=== PATIENT | male | born 1950 | race Caucasian/White ===

== ENCOUNTER 2023-09-04 14:46 | Inpatient (IN) | payer MEDICARE, OTHER ==
[~2023-09-04] VITALS: Ht 172.7 cm; Wt 89.4 kg
[2023-09-04] MEDS ORDERED: Eliquis (14:52)
[2023-09-04] MEDS ORDERED: Lasix (15:06)
[2023-09-04] MEDS ORDERED: Coreg (15:06)
[2023-09-04] MEDS ORDERED: Potassium (15:06)
[2023-09-04] MEDS ORDERED: Amlodipine (15:06)
[2023-09-04 15:16] LABS: BASOPHILS # (AUTO) 0.1 K/UL (0.0-0.2); BASOPHILS % (AUTO) 1.3 % (0.0-2.0); HEMATOCRIT 42.3 % (36.7-47.1); HEMOGLOBIN 14.4 g/dL (12.5-16.3); LYMPHOCYTES # (AUTO) 1.2 K/uL (0.8-4.8); LYMPHOCYTES % (AUTO) 11.2 % (20.5-51.5); MEAN CORPUSCULAR HEMOGLOBIN 30.9 uug (23.8-33.4); MEAN CORPUSCULAR HGB CONC 34 g/dL (32.5-36.3); MONOCYTES # (AUTO) 0.6 K/uL (0.1-1.30); NEUTROPHILS # (AUTO) 8.6 K/uL (1.8-8.9); NEUTROPHILS % (AUTO) 81.5 % (38.5-71.5); PLATELET COUNT (AUTO) 171 K/uL (152-348); RED BLOOD CELL COUNT(AUTO) 4.65 MIL/uL (4.06-5.63); WHITE BLOOD COUNT (AUTO) 10.6 K/uL (3.6-10.2)
[2023-09-04 15:33] LABS: DIFFERENTIAL COMMENT 1
[2023-09-04 15:36] LABS: ALANINE AMINOTRANSFERASE 10 U/L (16-63); ALBUMIN 2.9 g/dL (3.4-5.0); ALKALINE PHOSPHATASE 77 U/L (50-136); ASPARTATE AMINOTRANSFERASE 16 U/L (15-37); BILIRUBIN,DIRECT 0.7 mg/dL (0.0-0.2); CALCIUM 8.8 mg/dL (8.5-10.1); CARBON DIOXIDE 26 mmol/L (21-32); CHLORIDE 98 mmol/L (98-107); CREATININE 1.4 mg/dL (0.6-1.3); GLUCOSE 139 mg/dL (74-106); NT-PRO BNP 8184 pg/mL (0-125); TOTAL PROTEIN, SERUM 6.5 g/dL (6.4-8.2); UREA NITROGEN, BLOOD 15 mg/dL (7-18)
[2023-09-04 15:40] LABS: SODIUM SERUM 134 mmol/L (136-145)
[2023-09-04 15:44] LABS: POTASSIUM 2.6 mmol/L (3.5-5.1)
[2023-09-04] MEDS ORDERED: IV NORMAL SALINE 500 ML BAG IV ONE (15:45)
[2023-09-04] MEDS ORDERED: POTASSIUM CHLORIDE 40 MEQ in IV NS 1000 ML 1,000 ML IV ONE (16:00)
[2023-09-04] MEDS ORDERED: POTASSIUM CHLORIDE 20 MEQ TAB.PRT.SR PO ONE (16:00)
[2023-09-04] MEDS ORDERED: POTASSIUM CHLORIDE 20 MEQ TAB.PRT.SR ONE (16:17)
[2023-09-04] MEDS ORDERED: ASPIRIN 81 MG TAB.CHEW ONE (17:55)
[2023-09-04] MEDS ORDERED: CEFTRIAXONE /D5W 50ML IVPB **ER PYXIS IV ONE ×2 (17:55→21:15)
[2023-09-04] MEDS: CEFTRIAXONE 1 G in IV DEXTROSE 5% 50 ML IV SCH (18:15)
[2023-09-04] MEDS ORDERED: ONDANSETRON 4 MG/2 ML VIAL IV ONE (18:30)
[2023-09-04] MEDS ORDERED: ONDANSETRON 4 MG/2 ML VIAL ONE (18:43)
[2023-09-04] MEDS ORDERED: PRED2.5T PO (18:58)
[2023-09-04] MEDS ORDERED: APIX5TAB4 PO (18:58)
[2023-09-04] MEDS ORDERED: ABIR250T PO (18:58)
[2023-09-04] MEDS ORDERED: TAMS-3 PO (18:58)
[2023-09-04] MEDS ORDERED: POTA-88 PO (18:58)
[2023-09-04] MEDS ORDERED: FURO20TA4 PO (18:58)
[2023-09-04] MEDS ORDERED: RIVA20TA PO (18:58)
[2023-09-04] MEDS ORDERED: CARV6.252 PO (18:58)
[2023-09-04] MEDS ORDERED: AMLO-212 PO (18:58)
[2023-09-04] MEDS ORDERED: NITROGLYCERIN OINT 1 GM PACKET TP ONE ×2 (22:19→22:30)
[2023-09-04] MEDS ORDERED: FUROSEMIDE 40 MG/4 ML VIAL ONE (22:19)
[2023-09-04] MEDS ORDERED: hydrALAZINE HCL 20 MG/1 ML VIAL ONE (22:20)
[2023-09-04] MEDS ORDERED: hydrALAZINE HCL 20 MG/1 ML VIAL IV ONE (22:30)
[2023-09-04] MEDS ORDERED: FUROSEMIDE 40 MG/4 ML VIAL IV ONE (22:30)
[2023-09-04 23:41] VITALS: BP 173/96; TEMP 100; O2SAT 95
[2023-09-05 00:53] LABS: *BILIRUBIN,URIN NEGATIVE (NEGATIVE); *CLARITY,URINE CLEAR (CLEAR); *COLOR,URINE YELLOW (YELLOW); *KETONES,URINE NEGATIVE (NEGATIVE); *PROTEIN,URINE NEGATIVE (NEGATIVE); *UROBILINOGEN,URINE 0.2 E.U./dl (NORMAL); LEUKOCYTE ESTERASE ,URINE NEGATIVE (NEGATIVE); NITRITE, URINE NEGATIVE (NEGATIVE); UGLUCOSE NEGATIVE (NEGATIVE)
[2023-09-05 01:03] LABS: *BLOOD, URINE NEGATIVE (NEGATIVE)
[2023-09-05 04:55] VITALS: BP 116/81; TEMP 98.9; O2SAT 94
[2023-09-05 07:07] LABS: BASOPHILS # (AUTO) 0.1 K/UL (0.0-0.2); BASOPHILS % (AUTO) 0.8 % (0.0-2.0); HEMATOCRIT 38.2 % (36.7-47.1); HEMOGLOBIN 13.1 g/dL (12.5-16.3); LYMPHOCYTES # (AUTO) 0.8 K/uL (0.8-4.8); LYMPHOCYTES % (AUTO) 8.5 % (20.5-51.5); MEAN CORPUSCULAR HEMOGLOBIN 31.4 uug (23.8-33.4); MEAN CORPUSCULAR HGB CONC 34 g/dL (32.5-36.3); MEAN CORPUSCULAR VOLUME 91.9 fL (73.0-96.2); MONOCYTES # (AUTO) 0.5 K/uL (0.1-1.30); MONOCYTES % (AUTO) 5.1 % (0.0-11.0); NEUTROPHILS # (AUTO) 8.2 K/uL (1.8-8.9); NEUTROPHILS % (AUTO) 85.6 % (38.5-71.5); PLATELET COUNT (AUTO) 138 K/uL (152-348); RED BLOOD CELL COUNT(AUTO) 4.16 MIL/uL (4.06-5.63); RED CELL DISTRIBUTION WIDTH 13.2 % (12.1-16.2); WHITE BLOOD COUNT (AUTO) 9.5 K/uL (3.6-10.2)
[2023-09-05 07:16] LABS: DIFFERENTIAL COMMENT 1
[2023-09-05 07:28] LABS: CALCIUM 7.9 mg/dL (8.5-10.1); CARBON DIOXIDE 25 mmol/L (21-32); CHLORIDE 102 mmol/L (98-107); CREATININE 1.3 mg/dL (0.6-1.3); GLUCOSE 106 mg/dL (74-106); SODIUM SERUM 138 mmol/L (136-145); UREA NITROGEN, BLOOD 15 mg/dL (7-18)
[2023-09-05 08:00] VITALS: BP 117/76; TEMP 98.5; O2SAT 96
[2023-09-05 08:04] LABS: POTASSIUM 2.6 mmol/L (3.5-5.1)
[2023-09-05] MEDS ORDERED: ASPIRIN EC 81 MG TABLET.DR PO SCH ×2 (09:00)
[2023-09-05 11:41] VITALS: BP 111/71; TEMP 98.8; TEMP 99.7; O2SAT 93
[2023-09-05] MEDS ORDERED: POTASSIUM CHLORIDE 20 MEQ TAB.PRT.SR PO ONE ×3 (12:30→21:00)
[2023-09-05] MEDS ORDERED: Medication Not On Formulary EA (Apixaban (Eliquis) 5 MG) PO SCH (13:15)
[2023-09-05] MEDS: POTASSIUM CHLORIDE 20 MEQ TAB.PRT.SR PO SCH (14:00)
[2023-09-05] MEDS ORDERED: IOHEXOL 350 100 ML INFUS..BTL ONE (14:26)
[2023-09-05] MEDS ORDERED: SWABABLE VALVE TRANSFER SET EA MC ONE (14:26)
[2023-09-05] MEDS ORDERED: IV NORMAL SALINE 250 ML IV ONE (14:26)
[2023-09-05 15:59] VITALS: BP 158/91; TEMP 99; O2SAT 91
[2023-09-05] MEDS: AZITHROMYCIN IV 500 MG in IV DEXTROSE 5% 250 ML IV SCH (16:18)
[2023-09-05] MEDS: APIXABAN 5 MG TABLET PO SCH (17:34)
[2023-09-05] MEDS: CARVEDILOL 6.25 MG TABLET PO SCH (17:38)
[2023-09-05] MEDS: CEFTRIAXONE 1 G in IV DEXTROSE 5% 50 ML IV SCH (17:39)
[2023-09-05 20:21] VITALS: BP 113/50; TEMP 99.4; O2SAT 91
[2023-09-05] MEDS: TAMSULOSIN HCL 0.4 MG CAP.SR.24H PO SCH (20:26)
[2023-09-06] VITALS (10 sets, daily range): BP systolic 100–130; BP diastolic 58–85; TEMP 97.6–101.9; O2SAT 92–99
[2023-09-06] MEDS: ACETAMINOPHEN 325 MG TABLET PO PRN (00:08)
[2023-09-06] MEDS: ALBUTEROL SULFATE 2.5 MG/ 0.5 ML NEBU NEB PRN ×2 (04:31→12:46)
[2023-09-06] MEDS: PANTOPRAZOLE SODIUM 40 MG TABLET.DR PO SCH (06:15)
[2023-09-06 07:36] LABS: BASOPHILS % (AUTO) 0.5 % (0.0-2.0); HEMATOCRIT 37.7 % (36.7-47.1); HEMOGLOBIN 12.7 g/dL (12.5-16.3); LYMPHOCYTES # (AUTO) 0.6 K/uL (0.8-4.8); LYMPHOCYTES % (AUTO) 7.8 % (20.5-51.5); MEAN CORPUSCULAR HEMOGLOBIN 31.1 uug (23.8-33.4); MEAN CORPUSCULAR HGB CONC 34 g/dL (32.5-36.3); MEAN CORPUSCULAR VOLUME 91.9 fL (73.0-96.2); MONOCYTES # (AUTO) 0.3 K/uL (0.1-1.30); MONOCYTES % (AUTO) 4.3 % (0.0-11.0); NEUTROPHILS # (AUTO) 6.6 K/uL (1.8-8.9); NEUTROPHILS % (AUTO) 87.4 % (38.5-71.5); PLATELET COUNT (AUTO) 136 K/uL (152-348); RED CELL DISTRIBUTION WIDTH 13.6 % (12.1-16.2); WHITE BLOOD COUNT (AUTO) 7.5 K/uL (3.6-10.2)
[2023-09-06 07:41] LABS: ALANINE AMINOTRANSFERASE 12 U/L (16-63); ALBUMIN 2.3 g/dL (3.4-5.0); ALKALINE PHOSPHATASE 55 U/L (50-136); ASPARTATE AMINOTRANSFERASE 38 U/L (15-37); BILIRUBIN,TOTAL 0.9 mg/dL (0.2-1.0); CALCIUM 8.2 mg/dL (8.5-10.1); CARBON DIOXIDE 29 mmol/L (21-32); CHLORIDE 105 mmol/L (98-107); CREATININE 1.4 mg/dL (0.6-1.3); GLUCOSE 116 mg/dL (74-106); MAGNESIUM 2.1 mg/dL (1.8-2.4); PHOSPHOROUS 2.2 mg/dL (2.5-4.9); POTASSIUM 3.9 mmol/L (3.5-5.1); SODIUM SERUM 140 mmol/L (136-145); TOTAL PROTEIN, SERUM 5.7 g/dL (6.4-8.2); UREA NITROGEN, BLOOD 18 mg/dL (7-18)
[2023-09-06] MEDS: POTASSIUM CHLORIDE 20 MEQ TAB.PRT.SR PO SCH (08:58)
[2023-09-06] MEDS: TAMSULOSIN HCL 0.4 MG CAP.SR.24H PO SCH ×2 (08:58→21:24)
[2023-09-06] MEDS: predniSONE 5 MG TABLET PO SCH (08:59)
[2023-09-06] MEDS ORDERED: AMLODIPINE 5 MG TABLET PO SCH (09:00)
[2023-09-06] MEDS ORDERED: Medication Not On Formulary EA (Potassium Chloride 1 TAB) PO SCH (09:00)
[2023-09-06] MEDS ORDERED: predniSONE 2.5 MG TABLET PO SCH (09:00)
[2023-09-06] MEDS: APIXABAN 5 MG TABLET PO SCH ×2 (09:00→16:53)
[2023-09-06] MEDS ORDERED: NEUTRA PHOS PACKET PO ONE (10:00)
[2023-09-06] MEDS: CARVEDILOL 6.25 MG TABLET PO SCH (16:53)
[2023-09-06] MEDS: AZITHROMYCIN IV 500 MG in IV DEXTROSE 5% 250 ML IV SCH (16:53)
[2023-09-06] MEDS: CEFTRIAXONE 1 G in IV DEXTROSE 5% 50 ML IV SCH (18:02)
[2023-09-07] VITALS (19 sets, daily range): BP systolic 114–130; BP diastolic 62–82; TEMP 98.4–99; O2SAT 90–99
[2023-09-07] MEDS: ALBUTEROL SULFATE 2.5 MG/ 0.5 ML NEBU NEB PRN ×2 (04:31→12:55)
[2023-09-07] MEDS: PANTOPRAZOLE SODIUM 40 MG TABLET.DR PO SCH (06:15)
[2023-09-07 07:20] LABS: BASOPHILS % (AUTO) 0.4 % (0.0-2.0); EOSINOPHILS % (AUTO) 0.1 % (0.0-7.0); HEMATOCRIT 38.5 % (36.7-47.1); LYMPHOCYTES # (AUTO) 0.7 K/uL (0.8-4.8); LYMPHOCYTES % (AUTO) 9.5 % (20.5-51.5); MEAN CORPUSCULAR HEMOGLOBIN 31.1 uug (23.8-33.4); MEAN CORPUSCULAR HGB CONC 34 g/dL (32.5-36.3); MEAN CORPUSCULAR VOLUME 92.3 fL (73.0-96.2); MONOCYTES # (AUTO) 0.4 K/uL (0.1-1.30); MONOCYTES % (AUTO) 5.3 % (0.0-11.0); NEUTROPHILS # (AUTO) 6.1 K/uL (1.8-8.9); NEUTROPHILS % (AUTO) 84.7 % (38.5-71.5); PLATELET COUNT (AUTO) 134 K/uL (152-348); RED BLOOD CELL COUNT(AUTO) 4.17 MIL/uL (4.06-5.63); RED CELL DISTRIBUTION WIDTH 13.5 % (12.1-16.2); WHITE BLOOD COUNT (AUTO) 7.2 K/uL (3.6-10.2)
[2023-09-07 07:29] LABS: DIFFERENTIAL COMMENT 1
[2023-09-07 07:38] LABS: CALCIUM 8.7 mg/dL (8.5-10.1); CARBON DIOXIDE 25 mmol/L (21-32); CHLORIDE 102 mmol/L (98-107); CREATININE 1.3 mg/dL (0.6-1.3); GLUCOSE 103 mg/dL (74-106); MAGNESIUM 2.2 mg/dL (1.8-2.4); PHOSPHOROUS 2.1 mg/dL (2.5-4.9); POTASSIUM 3.9 mmol/L (3.5-5.1); SODIUM SERUM 134 mmol/L (136-145); UREA NITROGEN, BLOOD 17 mg/dL (7-18)
[2023-09-07] MEDS: POTASSIUM CHLORIDE 20 MEQ TAB.PRT.SR PO SCH (08:34)
[2023-09-07] MEDS: TAMSULOSIN HCL 0.4 MG CAP.SR.24H PO SCH ×2 (08:34→20:51)
[2023-09-07] MEDS: predniSONE 5 MG TABLET PO SCH (08:34)
[2023-09-07] MEDS: APIXABAN 5 MG TABLET PO SCH ×2 (08:35→16:49)
[2023-09-07] MEDS: CARVEDILOL 6.25 MG TABLET PO SCH ×2 (08:38→16:48)
[2023-09-07] MEDS ORDERED: POTASSIUM CHLORIDE 20 MEQ TAB.PRT.SR PO ONE (09:45)
[2023-09-07] MEDS ORDERED: NEUTRA PHOS PACKET PO ONE (09:45)
[2023-09-07] MEDS ORDERED: FUROSEMIDE 40 MG/4 ML VIAL IV ONE (11:00)
[2023-09-07] MEDS: ALBUTEROL SULFATE 2.5 MG/3 ML NEBU NEB SCH ×2 (15:22→20:36)
[2023-09-07] MEDS: AZITHROMYCIN IV 500 MG in IV DEXTROSE 5% 250 ML IV SCH (15:36)
[2023-09-07] MEDS: CEFTRIAXONE 1 G in IV DEXTROSE 5% 50 ML IV SCH (17:20)
[2023-09-07] MEDS ORDERED: ALBUTEROL SULFATE 2.5 MG/ 0.5 ML NEBU NEB SCH (19:30)
[2023-09-08] VITALS (17 sets, daily range): BP systolic 107–135; BP diastolic 61–79; TEMP 98–99.6; O2SAT 90–99
[2023-09-08] MEDS: ALBUTEROL SULFATE 2.5 MG/3 ML NEBU NEB SCH ×7 (00:13→23:40)
[2023-09-08] MEDS: PANTOPRAZOLE SODIUM 40 MG TABLET.DR PO SCH (06:52)
[2023-09-08] MEDS: POTASSIUM CHLORIDE 20 MEQ TAB.PRT.SR PO SCH (09:34)
[2023-09-08] MEDS: predniSONE 5 MG TABLET PO SCH (09:34)
[2023-09-08] MEDS: TAMSULOSIN HCL 0.4 MG CAP.SR.24H PO SCH ×2 (09:34→20:16)
[2023-09-08] MEDS: APIXABAN 5 MG TABLET PO SCH ×2 (09:35→16:21)
[2023-09-08] MEDS: CARVEDILOL 6.25 MG TABLET PO SCH ×2 (09:37→16:22)
[2023-09-08 11:51] LABS: *BILIRUBIN,URIN NEGATIVE (NEGATIVE); *CLARITY,URINE CLEAR (CLEAR); *COLOR,URINE YELLOW (YELLOW); *KETONES,URINE NEGATIVE (NEGATIVE); *PROTEIN,URINE 1+ (NEGATIVE); *UROBILINOGEN,URINE 0.2 E.U./dl (NORMAL); LEUKOCYTE ESTERASE ,URINE NEGATIVE (NEGATIVE); NITRITE, URINE NEGATIVE (NEGATIVE); PH,URINE 5.5 (5.0-8.0); UGLUCOSE NEGATIVE (NEGATIVE)
[2023-09-08] MEDS: FUROSEMIDE 40 MG TABLET PO SCH (12:17)
[2023-09-08 12:24] LABS: *BLOOD, URINE TRACE (NEGATIVE)
[2023-09-08 13:19] LABS: BACTERIA,URINE MODERATE /HPF (NONE SEEN); RBC,URINE 0-3 /HPF (0-3); SQUAMOUS EPITHELIAL CELL,UR FEW /HPF (NONE SEEN); WBC,URINE 0-3 /HPF (0-3)
[2023-09-08] MEDS: FLUTICASONE/VILANTEROL 1 EACH BLST.W.DEV INH SCH (16:21)
[2023-09-08] MEDS: AZITHROMYCIN IV 500 MG in IV DEXTROSE 5% 250 ML IV SCH (16:22)
[2023-09-08] MEDS: ENSURE ENLIVE (VAN) 240 ML LIQUID PO SCH (17:01)
[2023-09-08] MEDS: CEFTRIAXONE 1 G in IV DEXTROSE 5% 50 ML IV SCH (17:40)
[2023-09-08] MEDS: methylPREDNISolone SOD SUCC 40 MG/ML VIAL IV SCH (20:16)
[2023-09-09] VITALS (16 sets, daily range): BP systolic 106–134; BP diastolic 58–97; TEMP 97.5–98.6; O2SAT 90–99
[2023-09-09] MEDS: ALBUTEROL SULFATE 2.5 MG/3 ML NEBU NEB SCH ×6 (04:00→23:15)
[2023-09-09] MEDS: IPRATROPIUM BROMIDE 0.5 MG/2.5 ML NEBU NEB PRN (05:45)
[2023-09-09] MEDS: PANTOPRAZOLE SODIUM 40 MG TABLET.DR PO SCH (07:09)
[2023-09-09] MEDS: methylPREDNISolone SOD SUCC 40 MG/ML VIAL IV SCH ×2 (08:24→21:31)
[2023-09-09] MEDS: FUROSEMIDE 40 MG TABLET PO SCH (08:24)
[2023-09-09] MEDS: FLUTICASONE/VILANTEROL 1 EACH BLST.W.DEV INH SCH (08:24)
[2023-09-09] MEDS: TAMSULOSIN HCL 0.4 MG CAP.SR.24H PO SCH ×2 (08:25→21:31)
[2023-09-09] MEDS: POTASSIUM CHLORIDE 20 MEQ TAB.PRT.SR PO SCH (08:25)
[2023-09-09] MEDS: predniSONE 5 MG TABLET PO SCH (08:25)
[2023-09-09] MEDS: CARVEDILOL 6.25 MG TABLET PO SCH ×2 (08:25→17:07)
[2023-09-09] MEDS: APIXABAN 5 MG TABLET PO SCH ×2 (08:26→17:08)
[2023-09-09] MEDS: ENSURE ENLIVE (VAN) 240 ML LIQUID PO SCH ×2 (08:26→17:07)
[2023-09-09 10:03] LABS: BASOPHILS % (AUTO) 0.6 % (0.0-2.0); EOSINOPHILS # (AUTO) 0.6 K/uL (0.0-0.7); EOSINOPHILS % (AUTO) 9.6 % (0.0-7.0); HEMATOCRIT 42.5 % (36.7-47.1); HEMOGLOBIN 14.2 g/dL (12.5-16.3); LYMPHOCYTES # (AUTO) 0.3 K/uL (0.8-4.8); LYMPHOCYTES % (AUTO) 4.4 % (20.5-51.5); MEAN CORPUSCULAR HEMOGLOBIN 30.9 uug (23.8-33.4); MEAN CORPUSCULAR HGB CONC 33 g/dL (32.5-36.3); MEAN CORPUSCULAR VOLUME 92.5 fL (73.0-96.2); MONOCYTES # (AUTO) 0.1 K/uL (0.1-1.30); MONOCYTES % (AUTO) 1.1 % (0.0-11.0); NEUTROPHILS # (AUTO) 5.4 K/uL (1.8-8.9); NEUTROPHILS % (AUTO) 84.3 % (38.5-71.5); PLATELET COUNT (AUTO) 174 K/uL (152-348); RED CELL DISTRIBUTION WIDTH 14.4 % (12.1-16.2); WHITE BLOOD COUNT (AUTO) 6.5 K/uL (3.6-10.2)
[2023-09-09 10:05] LABS: DIFFERENTIAL COMMENT 1
[2023-09-09 10:09] LABS: CALCIUM 9.3 mg/dL (8.5-10.1); CARBON DIOXIDE 26 mmol/L (21-32); CHLORIDE 102 mmol/L (98-107); CREATININE 1.6 mg/dL (0.6-1.3); GLUCOSE 213 mg/dL (74-106); MAGNESIUM 2.3 mg/dL (1.8-2.4); POTASSIUM 4.2 mmol/L (3.5-5.1); SODIUM SERUM 139 mmol/L (136-145); UREA NITROGEN, BLOOD 31 mg/dL (7-18)
[2023-09-09] MEDS: AZITHROMYCIN IV 500 MG in IV DEXTROSE 5% 250 ML IV SCH (16:10)
[2023-09-09] MEDS: CEFTRIAXONE 1 G in IV DEXTROSE 5% 50 ML IV SCH (18:38)
[2023-09-10] VITALS (7 sets, daily range): BP systolic 113–138; BP diastolic 79–97; TEMP 97.5–98; O2SAT 94–100
[2023-09-10] MEDS: ACETAMINOPHEN 325 MG TABLET PO PRN (00:37)
[2023-09-10] MEDS: ALBUTEROL SULFATE 2.5 MG/3 ML NEBU NEB SCH ×3 (03:16→11:21)
[2023-09-10] MEDS: PANTOPRAZOLE SODIUM 40 MG TABLET.DR PO SCH (06:33)
[2023-09-10 06:37] LABS: BASOPHILS % (AUTO) 0.1 % (0.0-2.0); HEMATOCRIT 38.6 % (36.7-47.1); LYMPHOCYTES # (AUTO) 0.6 K/uL (0.8-4.8); LYMPHOCYTES % (AUTO) 6.9 % (20.5-51.5); MEAN CORPUSCULAR HEMOGLOBIN 30.9 uug (23.8-33.4); MEAN CORPUSCULAR HGB CONC 34 g/dL (32.5-36.3); MEAN CORPUSCULAR VOLUME 91.6 fL (73.0-96.2); MONOCYTES # (AUTO) 0.3 K/uL (0.1-1.30); MONOCYTES % (AUTO) 2.8 % (0.0-11.0); NEUTROPHILS # (AUTO) 8.3 K/uL (1.8-8.9); NEUTROPHILS % (AUTO) 90.2 % (38.5-71.5); PLATELET COUNT (AUTO) 216 K/uL (152-348); RED BLOOD CELL COUNT(AUTO) 4.22 MIL/uL (4.06-5.63); RED CELL DISTRIBUTION WIDTH 14.1 % (12.1-16.2); WHITE BLOOD COUNT (AUTO) 9.2 K/uL (3.6-10.2)
[2023-09-10 06:51] LABS: DIFFERENTIAL COMMENT 1
[2023-09-10 07:09] LABS: ALANINE AMINOTRANSFERASE 26 U/L (16-63); ALBUMIN 2.2 g/dL (3.4-5.0); ALKALINE PHOSPHATASE 66 U/L (50-136); ASPARTATE AMINOTRANSFERASE 29 U/L (15-37); BILIRUBIN,TOTAL 0.6 mg/dL (0.2-1.0); CARBON DIOXIDE 27 mmol/L (21-32); CHLORIDE 108 mmol/L (98-107); CREATININE 1.5 mg/dL (0.6-1.3); GLUCOSE 171 mg/dL (74-106); MAGNESIUM 2.3 mg/dL (1.8-2.4); PHOSPHOROUS 3.6 mg/dL (2.5-4.9); POTASSIUM 3.9 mmol/L (3.5-5.1); SODIUM SERUM 145 mmol/L (136-145); TOTAL PROTEIN, SERUM 6.3 g/dL (6.4-8.2); UREA NITROGEN, BLOOD 43 mg/dL (7-18)
[2023-09-10] MEDS: IPRATROPIUM BROMIDE 0.5 MG/2.5 ML NEBU NEB PRN (07:35)
[2023-09-10] MEDS: methylPREDNISolone SOD SUCC 40 MG/ML VIAL IV SCH (08:55)
[2023-09-10] MEDS: POTASSIUM CHLORIDE 20 MEQ TAB.PRT.SR PO SCH (08:55)
[2023-09-10] MEDS: CARVEDILOL 6.25 MG TABLET PO SCH (08:56)
[2023-09-10] MEDS: ENSURE ENLIVE (VAN) 240 ML LIQUID PO SCH (08:56)
[2023-09-10] MEDS: predniSONE 5 MG TABLET PO SCH (08:57)
[2023-09-10] MEDS: FLUTICASONE/VILANTEROL 1 EACH BLST.W.DEV INH SCH (08:57)
[2023-09-10] MEDS ORDERED: FUROSEMIDE 20 MG TABLET PO SCH (09:00)
[2023-09-10] MEDS: APIXABAN 5 MG TABLET PO SCH (09:10)
[2023-09-10] MEDS: TAMSULOSIN HCL 0.4 MG CAP.SR.24H PO SCH (09:10)
[2023-09-10] MEDS ORDERED: TAMS-3 PO (10:21)
[2023-09-10] MEDS ORDERED: LEVA15HF4 INH (10:23)
[2023-09-10] MEDS ORDERED: POTASSIUM CHLORIDE 20 MEQ TAB.PRT.SR PO ONE (11:00)
== END 2023-09-10 13:40 | disposition home health service (06) | DRG 871 ==
LOC: ER 14:46 → TELE3 22:37 → MEDSURG3 09-09 10:20
PROVIDERS: ADMIT Student in an Organized Health Care Education/Training Program; ATTEND Student in an Organized Health Care Education/Training Program
DX: A41.9 Sepsis, unspecified organism (principal); E43 Unspecified severe protein-calorie malnutrition; G92.8 Other toxic encephalopathy; J69.0 Pneumonitis due to inhalation of food and vomit; N17.0 Acute kidney failure with tubular necrosis; J18.9 Pneumonia, unspecified organism; I50.33 Acute on chronic diastolic (congestive) heart failure; G45.9 Transient cerebral ischemic attack, unspecified; E87.1 Hypo-osmolality and hyponatremia; I48.20 Chronic atrial fibrillation, unspecified; R47.01 Aphasia; D68.59 Other primary thrombophilia; I13.0 Hypertensive heart and chronic kidney disease with heart failure and stage 1 through stage 4 chronic kidney disease, or unspecified chronic kidney disease; G93.40 Encephalopathy, unspecified; E87.6 Hypokalemia; Z86.73 Personal history of transient ischemic attack (TIA), and cerebral infarction without residual deficits; Z79.01 Long term (current) use of anticoagulants; Z95.3 Presence of xenogenic heart valve; Z86.718 Personal history of other venous thrombosis and embolism; C61 Malignant neoplasm of prostate; N40.0 Benign prostatic hyperplasia without lower urinary tract symptoms; R19.7 Diarrhea, unspecified; J32.0 Chronic maxillary sinusitis; J33.8 Other polyp of sinus; I65.22 Occlusion and stenosis of left carotid artery; N18.9 Chronic kidney disease, unspecified; Z79.899 Other long term (current) drug therapy; Z91.81 History of falling; Z68.28 Body mass index [BMI] 28.0-28.9, adult
CPT/HCPCS: 36415; 70450; 70496; 71045; 83605; 83735; 84100; 84132; 84153; 84443; 84484; 85025; 85730; 87040; 93005; 93307; 93880; 94640; 94760; A4606; G0378; J0360; J0456; J0696; J1940; J2405; J2920; J3480; J3590; J7040; J7050; J7512; Q9967